=== PATIENT | female | born 1970 | race Caucasian/White ===

== ENCOUNTER 2020-06-20 12:25 | Emergency (ER) | payer OTHER ==
[2020-06-20 13:20] LABS: HEMOGLOBIN 15.4 gm/dl (12.3-15.3); RED BLOOD COUNT 4.8 M/UL (4.00-5.10); WHITE BLOOD COUNT 3.7 K/UL (4.5-11.0)
[2020-06-20 13:50] LABS: BUN/CREATININE RATIO 6 (0-10)
[2020-06-20] MEDS ORDERED: ZOFRAN4 MG PO (17:00)
[2020-06-20] MEDS ORDERED: DELSYM30 MG/5 ML PO (17:00)
[2020-06-20] MEDS ORDERED: FLONASE 0.05% N16 GM (17:00)
[2020-06-20] MEDS ORDERED: ZYRTEC10 MG PO (17:00)
[2020-06-20] MEDS ORDERED: POTASSIUM CHLO20 ME1 PO (17:02)
== END 2020-06-20 17:45 | disposition home or self-care (01) ==
LOC: ER1 12:25
PROVIDERS: Physician Assistant Medical
DX: E87.6 Hypokalemia (principal); I10 Essential (primary) hypertension; F17.210 Nicotine dependence, cigarettes, uncomplicated; Z79.899 Other long term (current) drug therapy; Z20.822 Contact with and (suspected) exposure to COVID-19
CPT/HCPCS: 71045; 80053; 81001; 83605; 85025; 87081; 87880; 96374; 99284; J2405; J7030; U0002